=== PATIENT | male | born 1985 | race Caucasian/White ===

== ENCOUNTER → 2017-06-24 | Outpatient (CLI) | payer OTHER ==
--- NOTE | 2017-06-24 16:03 | RADIOLOGY REPORT (SQ) ---
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 TECHNIQUE: Multiplanar imaging includes noncontrasted T1, T2, FLAIR, diffusion with ADC map and post gadolinium contrast T1 sequences. Images stored on PACS. CONTRAST TYPE AND DOSE: 10 mL Multihance. RENAL FUNCTION: None required. The patient is less than 50 years old. LIMITATIONS: None. FINDINGS: ANATOMY: No anomalies. Normal vascular flow voids. Pituitary fossa normal. CSF SPACES: Normal in size and contour. No hemorrhage. CEREBRUM: Sulci and gyri normal in size and contour. Normal white matter signal on FLAIR imaging. No evidence of hemorrhage, mass, or extraaxial fluid collection. No abnormal enhancement post contrast. POSTERIOR FOSSA: No signal alteration. No hemorrhage. No edema, masses, or mass effect. Internal marshal tory canals, cerebellopontine angles, mastoids normal. No enhancing lesions. No abnormal enhancement post contrast. DIFFUSION IMAGING: Negative for acute or subacute infarction. ORBITS: No masses. Globes normal. PARANASAL SINUSES: No fluid levels. Mucosa normal. OTHER: No other significant finding. IMPRESSION: NORMAL MRI OF THE BRAIN WITHOUT AND WITH INTRAVENOUS GADOLINIUM CONTRAST. EVIDENCE OF ACUTE STROKE: NO. TECHNICAL DOCUMENTATION: JOB ID: [id number] [employer]- All Rights Reserved Reading location - IP/workstation name: [facility]
== END ==
LOC: RAD 16:50
PROVIDERS: ATTEND Psychiatry & Neurology Neurology
DX: R26.9 Unspecified abnormalities of gait and mobility (principal); G80.0 Spastic quadriplegic cerebral palsy; G40.919 Epilepsy, unspecified, intractable, without status epilepticus
CPT/HCPCS: 70553; A9577

== ENCOUNTER 2017-12-08 21:11 | Emergency (ER) | payer OTHER ==
--- NOTE | 2017-12-08 22:07 | ER Document Report ---
ED General - General Chief Complaint: Seizure Stated Complaint: POSSIBLE SEIZURE Time Seen by Provider: 12/08/17 22:05 Notes: Patient is a 32-year-old male presents with complaint of seizure. He has cerebral palsy. After long discussion it appears that patient symptoms have increased since he started school. He used to have seizures just occasionally but they become much more frequent. He says he had 2 today and 2 yesterday. He also had another one on . He is on Lamictal. This is not recently changed. His neurologist is Dr. Manzano in [place]. He denies any recent fevers or illnesses. He also mentions that he is just had increased global weakness and patient's family says this seems to be increasing with his stress load from school. TRAVEL OUTSIDE OF THE [place] IN LAST 30 DAYS: No - Related Data Allergies/Adverse Reactions: amoxicillin [Amoxicillin] Allergy (Verified 09/23/13 12:27) Past Medical History - Social History Smoking Status: Never Smoker Frequency of alcohol use: None Drug Abuse: None Family History: Reviewed & Not Pertinent Patient has suicidal ideation: No Patient has homicidal ideation: No Neurological Medical History: Reports: Hx Seizures - Seizure as well as pseudoseizure Renal/ Medical History: Denies: Hx Peritoneal Dialysis Psychiatric Medical History: Reports: Hx Depression Past Surgical History: Reports: Hx Abdominal Surgery, Hx Tonsillectomy - Immunizations Hx Diphtheria, Pertussis, Tetanus Vaccination: Yes Review of Systems - Review of Systems Notes: My Normal Review Basic REVIEW OF SYSTEMS: CONSTITUTIONAL : Denies fever, chills, or sweats. Denies recent illness. EENT: Denies eye, ear, throat, or mouth pain or symptoms. Denies nasal or sinus congestion. CARDIOVASCULAR: Denies chest pain. RESPIRATORY: Denies cough, cold, or chest congestion. Denies shortness of breath, difficulty breathing, or wheezing. GASTROINTESTINAL: Denies abdominal pain. Denies nausea, vomiting, or diarrhea. Denies constipation. Last BM: MUSCULOSKELETAL: Denies neck or back pain or joint pain or swelling. SKIN: Denies rash or skin lesions. NEUROLOGICAL: Seizure. Denies weakness or paralysis or loss of use of either side. Worsening generalized weakness. ALL OTHER SYSTEMS REVIEWED AND NEGATIVE. Physical Exam - Vital signs Vitals: Resp Pulse Ox 20 96 12/08/17 21:16 12/08/17 21:16 - Notes Notes: General Appearance: Well nourished, alert, cooperative, no acute distress, no obvious discomfort. Well-appearing. Vitals: reviewed, See vital signs table. Head: no swelling or tenderness to the head Eyes: PERRL, Conjuctiva clear Mouth: No decreasd moisture Lungs: No wheezing, No rales, No rhonci, No accessory muscle use, good air exchange bilaterally. Heart: Normal rate, Regular rythm, No murmur, no rub Abdomen: Normal BS, soft, No rigidity, No abdominal tenderness, No guarding, no rebound, no abdominal masses, no organomegaly Extremities: strength 5/5 in all extremities, good pulses in all extremities, no swelling or tenderness in the extremities, no edema. Skin: warm, dry, appropriate color, no rash Neuro: speech clear, oriented x 3, normal affect, responds appropriately to questions. Cranial nerves II through XII are intact except for a lazy on the left side. No focal weakness. Patient is globally weak in the extremities but able to move them. Course - Re-evaluation Re-evalutation: 12/09/17 00:27 Family wanted me to get records from [facility] so that would not to repeat blood work since he just had blood work done yesterday. I will contact [facility] and fax them records request. This was approximate hour and a half ago. We still not heard back. Director Compensation is calling them again but is not having much luck in receiving further records. I did inform patient's customer service agent of this I recommended just allow us to repeat the blood work here at this time. He said he could drive to [facility] to case picker the records but informed him that most hospitals will not give medical records to patients during the night time and wait for the medical records department to actually be open to the public during the day before given the records and therefore he could be potentially wasting his time driving tonight. Also informed him that we are he have his blood drawn and therefore can get the results back much quicker just running the test here is supposed to him driving out there and then having to come back. Patient's student career development specialist is agreeable to allow me to run the test here. Did contact our lab and the Lamictal level is a send out and therefore I will not have results for several days and therefore is not very useful for me at this time. 12/09/17 00:29 12/09/17 01:34 Patient has not had any further seizures since arriving here. He looks well. I suspect a lot of his weakness and recurrent seizures related to his increasing stressors from school being that the symptoms started after he started school. Patient himself admits that school has been very stressful for him. I did speak with his neurologist, . At that time was on the impression that he was on Lamictal [address] Blackwell commencing increasing his dose to 100 mg in the morning and 200 mg at night. I went back to the patient's father he said that the patient is actually now on 100 mg 3 times a day. I will therefore have him increase the midday dose to 200 mg follow-up closely with Dr. Blackwell. I informed him to stop going to school and to try to limit stressors as much as possible. Encourage him return to ER if he has recurrent seizures or feels unwell. Patient and father agree with plan and patient will be discharged home. Dictation of this chart was performed using voice recognition software; therefore, there may be some unintended grammatical errors. - Vital Signs Vital signs: Temp Pulse Resp BP Pulse Ox 16 102/62 94 12/09/17 00:01 12/09/17 00:00 12/09/17 00:01 - Laboratory Result Diagrams: 12/08/17 21:29 Laboratory results interpreted by me: 12/08/17 21:29 BUN 22 H - EKG Interpretation by Me Additional EKG results interpreted by me: 12/08/17 22:07 EKG is reviewed and interpreted by me. EKG shows sinus rhythm with a rate of [address] segment elevation or depression. No ischemic T wave inversions. [place] interval, QRS duration, QTc intervals are within normal range. No old EKG available for comparison. Discharge - Discharge Clinical Impression: Seizure Condition: Good Disposition: HOME, SELF-CARE Additional Instructions: Please change your Lamictal dosing from 100mg three times a day to 100mg in the morning, 200mg midday, and 100mg at night. you are therefore just increasing your midday dose to 200mg. please call Dr. Blackwell's office for a follow up appointment. Please take a break from school and your stressors. Return to the ER if you have frequent seizures despite the increase in your medication. Prescriptions: Lamotrigine [Lamictal 100 mg Tablet] 100 mg PO ASDIR #30 tablet Referrals: BARBARA BLACKWELL MD [Primary Care Provider] - Follow up in 3-5 days
[2017-12-09 00:41] LABS: ANION GAP 9 (5-19); BLOOD UREA NITROGEN 22 mg/dL (7-20); CALCIUM 9.8 mg/dL (8.4-10.2); CARBON DIOXIDE 30 mmol/L (22-30); CHLORIDE 100 mmol/L (98-107); GLUCOSE 85 mg/dL (75-110); SODIUM 139.2 mmol/L (137-145)
[2017-12-09 00:50] LABS: POTASSIUM 3.9 mmol/L (3.6-5.0)
[2017-12-09 03:05] VITALS: BP 105/66
== END 2017-12-09 02:00 | disposition home or self-care (01) ==
LOC: ER 21:11
DX: R56.9 Unspecified convulsions (principal)
CPT/HCPCS: 36415; 80048; 83735; 99284

== ENCOUNTER 2019-04-06 17:39 | Emergency (ER) | payer OTHER ==
[2019-04-06] MEDS ORDERED: IBUPROFEN 800 MG TABLET PO ONE (21:00)
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
[2019-04-06 21:18] VITALS: BP 105/72
== END 2019-04-06 21:20 | disposition home or self-care (01) ==
LOC: ER 17:39
DX: S29.012A Strain of muscle and tendon of back wall of thorax, initial encounter (principal); V43.62XA Car passenger injured in collision with other type car in traffic accident, initial encounter
CPT/HCPCS: 99283